=== PATIENT | female | born 2000 | race Caucasian/White ===

== ENCOUNTER 2020-03-02 13:16 | Emergency (ER) | payer OTHER, SELFPAY ==
[2020-03-02 14:26] LABS: Basophils % 0.6 % (0-1.3); Hematocrit 35.5 % (36.0-45.0); Lymphocytes % 26.5 % (15.3-44.8); MPV 8.7 fL (7.6-11.3); RBC Red Blood Cell Count 4.16 M/uL (3.86-4.86)
[2020-03-02 14:43] LABS: BUN Blood Urea Nitrogen 9 mg/dL (7-18); Bicarbonate 24 mmol/L (21-32); Glucose Level 93 mg/dL (74-106); HCG, Quantitative 772 mIU/mL (1-3); Potassium 3.9 mmol/L (3.5-5.1); Sodium Level 138 mmol/L (136-145)
[2020-03-02 14:53] LABS: Urine Blood 2+ (NEG); Urine Glucose NEGATIVE (NEG); Urine Protein NEGATIVE (NEG); Urine Specific Gravity 1.025 (1.005-1.030); Urine pH 5.5 (5.0-7.0)
--- NOTE | 2020-03-02 15:01 | ER ---
Nurse's Notes [facility] Name: Virginia Greer Age: 20 yrs Sex: Female : 2000 Arrival Date: 03/02/2020 Time: 13:19 Bed 23 Private MD: Diagnosis: Threatened Presentation: 03/02 13:23 Chief complaint: Spotty bright red vaginal bleeding x 1 week. Reports she is approx 9 hb weeks , LMP 12/26. Coronavirus screen: At this time, the client does not indicate any symptoms associated with coronavirus-19. Ebola Screen: No symptoms or risks identified at this time. Initial Sepsis Screen: Does the patient meet any 2 criteria? No. Patient's initial sepsis screen is negative. Does the patient have a suspected source of infection? No. Patient's initial sepsis screen is negative. Risk Assessment: Do you want to hurt yourself or someone else? Patient reports no desire to harm self or others. Onset of symptoms was February 26, 2020. 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 - Social history:: Smoking status: Patient denies any tobacco usage or history of. Screenin:50 Abuse screen: Denies threats or abuse. Nutritional screening: No deficits noted. aa5 Tuberculosis screening: No symptoms or risk factors identified. Fall Risk None identified. Assessment: 13:50 General: Appears comfortable, Behavior is calm, cooperative. Pain: Denies pain. Neuro: aa5 Level of Consciousness is awake, alert, obeys commands, Oriented to person, place, time, situation. Cardiovascular: Patient's skin is warm and dry. Respiratory: Airway is patent Respiratory effort is even, unlabored, Respiratory pattern is regular, symmetrical. GI: Abdomen is round non-distended, Bowel sounds present X 4 quads. Abd is soft and non tender X 4 quads. : Reports vaginal bleeding that is bright red, light flow. EENT: No signs and/or symptoms were reported regarding the EENT system. Derm: Skin is pink, warm \\T\\ dry. Musculoskeletal: Range of motion: intact in all extremities. 14:05 Reassessment: Pt refused IV, pt states "I don't mind the blood work but I don't like aa5 the IV". Provider was notified. . 14:17 Reassessment: Patient is alert, oriented x 3, equal unlabored respirations, skin aa5 warm/dry/pink. Pt to US via wheelchair . 15:10 Reassessment: Patient is alert, oriented x 3, equal unlabored respirations, skin aa5 warm/dry/pink. Vital Signs: 13:23 BP 125 / 79; Pulse 107; Resp 16; Temp 97.8; Pulse Ox 100% on R/A; Weight 89.81 kg; hb Height 5 ft. 7 in. (170.18 cm); Pain 0/10; 13:23 Body Mass Index 31.01 (89.81 kg, 170.18 cm) hb ED Course: 13:19 Patient arrived in ED. as 13:25 Triage completed. hb 13:26 Arm band placed on. hb 13:49 Allyson Chung, RN is Primary Nurse. aa5 13:49 Nick Rea PA is PHCP. [facility] 13:49 Mor Granados MD is Attending Physician. [facility] 13:50 Patient has correct armband on for positive identification. Bed in low position. Call aa5 light in reach. Side rails up X2. Adult w/ patient. 14:10 Initial lab(s) drawn, by me, sent to lab. aa5 14:50 Transvaginal OB In Process Unspecified. EDMS 15:10 No provider procedures requiring assistance completed. Patient did not have IV access aa5 during this emergency room visit. Administered Medications: No medications were administered Point of Care Testing: Urine : 14:00 hCG Reading: Positive; Control Reading: Positive; aa5 Outcome: 15:00 Discharge ordered by . [facility] 15:10 Discharged to home ambulatory, with significant other. aa5 15:10 Condition: stable 15:10 Discharge instructions given to patient, Instructed on discharge instructions, follow up and referral plans. Demonstrated understanding of instructions, follow-up care. 15:15 Patient left the ED. hb Signatures: Dispatcher [employer] Nick Lauren PA PA jmm Martinez, Amelia as Calderon, Audri, RN RN aa5 Norma Maynard, SONIYA RN hb
--- NOTE | 2020-03-02 15:01 | EDPHYS ---
Physician Documentation [facility] Name: Virginia Greer Age: 20 yrs Sex: Female : 2000 Arrival Date: 03/02/2020 Time: 13:19 Bed 23 Private MD: ED Physician Mor Granados HPI: 03/02 13:35 This 20 yrs old Female presents to ER via Ambulatory with complaints of jmm Vaginal Bleeding, + Preg <12wks. 13:35 The patient presents to the emergency department with vaginal bleeding. The estimated jmm gestational age is 8 weeks. Previous pregnancies: the patient has never been . Patient complains of bright red vaginal bleeding beginning today with some pelvic cramping. . 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 - Social history:: Smoking status: Patient denies any tobacco usage or history of. ROS: 13:35 Constitutional: Negative for fever, chills, and weight loss, Cardiovascular: Negative jmm for chest pain, palpitations, and edema, Respiratory: Negative for shortness of breath, cough, wheezing, and pleuritic chest pain. 13:35 : Positive for vaginal bleeding. 13:35 All other systems are negative. Exam: 13:35 Constitutional: This is a well developed, well nourished patient who is awake, alert, jmm and in no acute distress. Head/Face: atraumatic. Eyes: EOMI, no conjunctival erythema appreciated ENT: Moist Mucus Membranes Neck: Trachea midline, Supple Chest/axilla: Normal chest wall appearance and motion. Cardiovascular: Regular rate and rhythm. No edema appreciated Respiratory: Normal respirations, no respiratory distress appreciated Abdomen/GI: Non distended, soft Back: Normal ROM Skin: General appearance color normal MS/ Extremity: Moves all extremities, no obvious deformities appreciated, no edema noted to the lower extremities Neuro: Awake and alert, normal gait Psych: Behavior is normal, Mood is normal, Patient is cooperative and pleasant Vital Signs: 13:23 BP 125 / 79; Pulse 107; Resp 16; Temp 97.8; Pulse Ox 100% on R/A; Weight 89.81 kg; hb Height 5 ft. 7 in. (170.18 cm); Pain 0/10; 13:23 Body Mass Index 31.01 (89.81 kg, 170.18 cm) hb MDM: 14:03 Patient medically screened. [facility] 14:59 Data reviewed: vital signs, nurses notes. Counseling: I had a detailed discussion with sofia the patient and/or guardian regarding: the historical points, exam findings, and any diagnostic results supporting the discharge/admit diagnosis, lab results, radiology results, the need for outpatient follow up, to return to the emergency department if symptoms worsen or persist or if there are any questions or concerns that arise at home. ED course: Patient is alert and non toxic in appearance in the ED. Advised to follow up with obgyn for further evaluation. Patient understood and agrees with the plan of care. . 03/02 13:35 Order name: Quantitative Hcg; Complete Time: 14:48 kb 03/02 13:35 Order name: Abo/rh Typing; Complete Time: 14:59 kb 03/02 13:35 Order name: Basic Metabolic Panel; Complete Time: 14:48 kb 03/02 13:35 Order name: CBC with Diff; Complete Time: 14:33 kb 03/02 14:04 Order name: Urine Dipstick--Ancillary (enter results); Complete Time: 14:53 em1 03/02 14:04 Order name: Urine --Ancillary (enter results); Complete Time: 14:53 em1 03/02 13:35 Order name: Urine Test (obtain specimen); Complete Time: 14:01 kb 03/02 13:35 Order name: Labs collected and sent; Complete Time: 14:17 kb 03/02 13:35 Order name: NPO; Complete Time: 14:17 kb 03/02 13:35 Order name: Urine Dipstick-Ancillary (obtain specimen); Complete Time: 14:01 kb 03/02 14:50 Order name: Transvaginal OB; Complete Time: 15:11 EDMS Administered Medications: No medications were administered Point of Care Testing: Urine : 14:00 hCG Reading: Positive; Control Reading: Positive; aa5 Disposition: 03/03 14:41 Co-signature as Attending Physician, Mor Granados MD I agree with the assessment and kdr plan of care. Disposition: 03/02/20 15:00 Discharged to Home. Impression: Threatened . - Condition is Stable. - Discharge Instructions: Threatened Miscarriage. - Family Work Release, Medication Reconciliation Form, Thank You Letter, Antibiotic Education, Prescription Opioid Use, Work release form form. - Follow up: Private Physician; When: 2 - 3 days; Reason: Recheck today's complaints, Continuance of care, Re-evaluation by your physician. Signatures: Dispatcher [employer] EDNE Juhi Patel, FISHING LINE WINDING MACHINE OPERATOR-C FISHING LINE WINDING MACHINE OPERATOR-Ckb Mor Granados MD MD kdr Nick Rea PA PA Norma Erwin, RN RN hb Corrections: (The following items were deleted from the chart) 03/02 14:17 13:35 IV Saline Lock ordered. kb aa5 14:50 14:07 1st Trimest Single 1st Fetus+US.RAD.BRZ ordered. [facility] 15:15 15:00 03/02/2020 15:00 Discharged to Home. Impression: Threatened . Condition hb is Stable. Forms are Medication Reconciliation Form, Thank You Letter, Antibiotic Education, Prescription Opioid Use. Follow up: Private Physician; When: 2 - 3 days; Reason: Recheck today's complaints, Continuance of care, Re-evaluation by your physician. sofia
--- NOTE | 2020-03-02 15:08 | RAD REPORT ---
EXAM DESCRIPTION: US - Transvaginal OB - 03/02/2020 2:49 pm CLINICAL HISTORY: VAGINAL BLEEDING COMPARISON: No comparisons FINDINGS: The uterus measures 8.1 x 4.3 x 4.4 cm. Endometrium measures 8 mm in thickness with trace fluid present. No IUP identified. The maternal adnexa and ovaries are within normal limits. Normal Doppler blood flow was demonstrated to both ovaries. No pelvic ascites. IMPRESSION: There is no IUP identified. In the setting of an elevated HCG level, this would constitu te a of unknown location. Advise follow-up serial HCG levels and follow-up sonography in 7- 10 days.
[2020-03-02 15:35] VITALS: O2SAT 100
[2020-03-02 15:38] VITALS: BP 120/80; TEMP 97.7
--- OUTSIDE RECORDS SUMMARY | 2020-03-02 15:45 | XMS REPORT | Summary of Care ---
:2000 Author Organization [facility] - Health Address [address] [place] [address] Care Team Providers Name Role Phone Unavailable Primary Care Provider Unavailable Encounter Details Date Type Department Care Team Description 02/17/2020 Orders Only [facility] Doctor Unassigned, No [address] [facility] [place] [address] [address] [place] [address] Allergies Not on Filedocumented as of this encounter (statuses as of 02/17/2020) Medications Not on filedocumented as of this encounter (statuses as of 02/17/2020) Active Problems Not on filedocumented as of this encounter (statuses as of 02/17/2020) Social History Tobacco Use Types Packs/Day Years Used Date Never Assessed Sex Assigned at Date Recorded Not on file documented as of this encounter Last Filed Vital Signs Not on filedocumented in this encounter Plan of Treatment Date Type Specialty Care Team Description 02/17/2020 Office Visit OB Satellites Tara Perez FNP [address] [place] [address] [phone] [facility] Initial Visit OB Satellites Tara Perez FNP [address] [place], [place] [address] [phone] Health Maintenance Due Date Last Done Comments VARICELLA VACCINES (1 of 2 - 2-dose 02/13/2001 childhood series) MENINGOCOCCAL B VACCINES (1 of 2 - 02/13/2010 Risk Bexsero 2-dose series) HPV VACCINES (1 - 2-dose series) 02/13/2011 Depression Screening 2012 WELL CARE VISIT: 12-21 YEARS 2012 (yearly) CHLAMYDIA SCREENING 2016 DTaP,Tdap,and Td Vaccines (1 - 02/13/2019 Tdap) INFLUENZA VACCINE (#1) 2020 MENINGOCOCCAL VACCINE Aged Out No longer eligible based on patient's age to complete this topic PNEUMOCOCCAL 0-64 YEARS COMBINED Aged Out No longer eligible based on SERIES patient's age to complete this topic documented as of this encounter Procedures Procedure Name Priority Date/Time Associated Diagnosis Comme nts NOTICE OF PRIVACY Routine 02/17/2020 1:11 PM CDT PRACTICES documented in this encounter Results Not on filedocumented in this encounter
--- OUTSIDE RECORDS SUMMARY | 2020-03-02 15:45 | XMS REPORT | Continuity of Care Document ---
:2000 Author Organization [facility] t Address [address] [place] [address] Care Team Providers Name Role Phone Lillian Holden Attending Clinician Problems This patient has no known problems. Allergies, Adverse Reactions, Alerts This patient has no known allergies or adverse reactions. Medications This patient has no known medications. Procedures This patient has no known procedures. 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
--- OUTSIDE RECORDS SUMMARY | 2020-03-02 15:45 | XMS REPORT | Summary of Care ---
:2000 Author Organization [facility] Address [address] [place] [id number] Care Team Providers Name Role Phone Lillian Perez Primary Care Provider Reason for Visit Reason Comments Assessment Bleeding and needs to know w hat to do. Encounter Details Date Type Department Care Team Description 03/01/2020 [facility], Ass essment (Bleeding [place] DATA ANALYSIS INTERN and needs to know what [address] [place] [address] to do.) [place], [place] [phone] Allergies No Known Allergiesdocumented as of this encounter (statuses as of 03/01/2020) Medications No known medicationsdocumented as of this encounter (statuses as of 03/01/2020) Active Problems Problem Noted Date Susceptible to varicella (non-immune), currently pregn ant 02/18/2020 Overview: Address pp Influenza vaccine refused 02/17/2020 Supervision of high risk in first trimester 02/17/2020 Obesity affecting , antepartum 02/17/2020 Estimated Date of Delivery Comments Yes 10/02/2020 documented as of this encounter (statuses as of 03/01/2020) Social History Tobacco Use Types Packs/Day Years Used Date Never Smoker Smokeless Tobacco: Never Used Alcohol Use Drinks/Week oz/Week Comments Not Currently Estimated Date of Delivery Comments Yes 10/02/2020 Sex Assigned at Date Recorded Not on file COVID-19 Exposure Response Date Recorded In the last month, have you been in contact with No / Unsure 02/17/2020 2:00 PM CDT someone who was confirmed or suspected to have Coronavirus / COVID-19? documented as of this encounter Last Filed Vital Signs Not on filedocumented in this encounter Miscellaneous Notes Telephone Encounter - Mercy Diez RN - 03/01/2020 11:19 AM CDTPatient called states she started having vaginal bleeding since 02/29/2020. Patient passing blood clots last night and reports having menstrual like bleeding today. Patient denies any cramping, fever, and or soaking more than 1 pad an hour. Patient reports last intercourse 02/15/2020. Advised to go to ER for evaluation due to heavy bleeding. Strict ER warnings given. Patient verbalized understanding. MERCY DIEZ RN 03/01/2020 11:21 AM Telephone Encounter - Angelique Randall - 03/01/2020 11:11 AM CDTPatient called me because she has my info and wanted to talk to someone about her bleeding. She is aprenatal patient that was seen on 02/17/2020. She stated that at first notice, she was bleeding a little, but now, she is bleeding more. What should she do? documented in this encounter Plan of Treatment Date Type Specialty Care Team Description 03/16/2020 Routine Visit OB Satellites Tara Perez, DATA ANALYSIS INTERN [address] [place] [facility] [place], [place] [address] [phone] Health Maintenance Due Date Last Done Comments INFLUENZA VACCINE (#1) 2020 Postponed from 01/11/2020 (Refu sed) HPV VACCINES (1 - 2-dose 02/07/2021 Postpon ed from series) 02/13/2011 (Preg nant or ) CHLAMYDIA SCREENING 02/16/2021 02/17/2020, 02/17/2020 DTaP,Tdap,and Td Vaccines (1 02/16/2021 Pos tponed from - Tdap) 02/13/2019 ([place] Guidelines) Depression Screening 02/16/2021 02/17/2020 MENINGOCOCCAL B VACCINES (1 02/16/2021 Post poned from of 2 - Risk Bexsero 2-dose 02/13 ( or series) ) VARICELLA VACCINES (1 of 2 - 02/16/2021 Pos tponed from 2-dose childhood series) 001 ( or ) MENINGOCOCCAL VACCINE Aged Out No longer eligible based on patient's age to complete this to pic PNEUMOCOCCAL 0-64 YEARS Aged Out No longe r eligible based COMBINED SERIES on patient's age to complete this to pic WELL CARE VISIT: 12-21 YEARS Discontinued (yearly) documented as of this encounter Results Not on filedocumented in this encounter Insurance Payer Benefit Plan / Subscriber ID Effective Phone Address T ype Group Dates MEDICAID MEDICAID PENDING [id number] Pending [place] [address] documented as of this encounter
--- OUTSIDE RECORDS SUMMARY | 2020-03-02 15:45 | XMS REPORT | Summary of Care ---
:2000 Author Organization [facility] Address [address] [place] [address] Care Team Providers Name Role Phone Lillian Perez Primary Care Provider Reason for Visit Reason Comments New OB Visit Encounter Details Date Type Department Care Team Description 02/17/2020 Initial [facility] RMP- Tara Perez pervision of high risk in first trimester (Primary Dx); Visit CLARE Zapata Obesity affecting , antepartum; [address] Exposure to viral disease; Street [address] [place] [id number] [phone] Allergies No Known Allergiesdocumented as of this encounter (statuses as of 02/17/2020) Medications No known medicationsdocumented as of this encounter (statuses as of 02/17/2020) Active Problems Problem Noted Date Influenza vaccine refused 02/17/2020 Supervision of high [...] of this encounter Last Filed Vital Signs Vital Sign Reading Time Taken Comments Blood Pressure 131/77 02/17/2020 2:00 PM CDT Pulse 98 02/17/2020 2:00 PM CDT Temperature 36.4 C (97.5 F) 02/17/2020 2:00 PM CDT Respiratory Rate 16 02/17/2020 2:00 PM CDT Oxygen Saturation - - Inhaled Oxygen Concentration - - Weight 90.5 kg (199 lb 9 oz) 02/17/2020 2:00 PM CDT Height 170.2 cm (5' 7") 02/17/2020 2:00 PM CDT Body Mass Index 31.26 02/17/2020 2:00 PM CDT documented in this encounter Progress Notes Tara Perez, INFANTRY OPERATIONS SPECIALIST - 02/17/2020 1:45 PM CDT Chief complaint: Chief Complaint Patient presents with New OB Visit CC: Initial Visit Virginia Greer is a 20 year old, , /White female. Patient's last menstrual periodwas 12/27/2019 (approximate). She is 7w3d with a suspected intrauterine . Her Estimated Date of Delivery: 10/02/20. She is being seen today for her first obstetrical visit. She has no complaints today. Patient denies recent foreign travel. Denies current physical, emotional or sexual abuse. OB History T0 L0 SAB0 TAB0 Ectopic0 Multiple0 Live Births0 Name of Baby 1: Not recorded Date: Not recorded GA: Not recorded Delivery: Not recorded Apgar1: Not recorded Apgar5: Not recorded Living: Not recorded Histories OB History Para Term AB Living 1 SAB TAB Ectopic Multiple Live Births # Outcome Date GA Lbr Lul/2nd Weight Sex Delivery Anes PTL Lv 1 Current History reviewed. No pertinent past medical history. Family History Problem Relation Age of Onset Diabetes Mother Diabetes Maternal Grandfather Family Status Relation Name Status Mo Alive MGFa Alive History reviewed. No pertinent surgical history. Social History Socioeconomic History Marital status: Single Spouse name: Not on file Number of children: Not on file Years of education: Not on file Highest education level: Not on file Occupational History Not on file Social Needs Financial resource strain: Not on file Food insecurity Worry: Not on file Inability: Not on file Transportation needs Medical: Not on file Non-medical: Not on file Tobacco Use Smoking status: Never Smoker Smokeless tobacco: Never Used Substance and Sexual Activity Alcohol use: Not Currently Drug use: Not Currently Sexual activity: Not on file Lifestyle Physical activity Days per week: Not on file Minutes per session: Not on file Stress: Not on file Relationships Social connections Talks on phone: Not on file Gets together: Not on file Attends adventism service: Not on file Active member of club or organization: Not on file Attends meetings of clubs or organizations: Not on file Relationship status: Not on file Intimate partner violence Fear of current or ex partner: Not on file Emotionally abused: Not on file Physically abused: Not on file Forced sexual activity: Not on file Other Topics Concern Not on file Social History Narrative Patient lives with fiance. Taoist preference Holiness. Patient has 2 dogs and 1 kitten, aware of litter box precautions. Social History Substance and Sexual Activity Sexual Activity Not on file Genetic Screen Autism / Mental Retardation: No Hawk Disease: No Congenital Heart Defect: No Cystic Fibrosis: No Down Syndrome: No Familial Dysautonomia: No Hemophilia or other Blood Disorders: No [place] Chorea: No Maternal Metabolic Disorder--specify (eg. Type 1 Diabetes, PKU): No Muscular Dystrophy: No Neural Tube Defect: No Recurrent Loss or a Stillbirth: No Sickle Cell Disease or Trait: No Leonard Sachs: No Teratological Substances (specify type & strength/dose) since LMP: No Thalassemia: No Other Inherited Genetic or Chromosomal Disorder (specify): No No Significant History of Genetic Disorders: No Significant History of Genetic Disorders Labs Labs are pending. Radiology Radiology pending. Allergies Virginia has No Known Allergies. Medications [place] currently has no medications in their medication list. Review of Systems Constitutional: Negative. Negative for appetite change, fatigue and fever. HENT: Negative. Eyes: Negative. Negative for visual disturbance. Respiratory: Negative. Breasts: Negative. Cardiovascular: Negative. Negative for palpitations and leg swelling. Gastrointestinal: Negative. Negative for abdominal pain, constipation, diarrhea, nausea and vomiting. Genitourinary: Negative. Negative for dysuria, vaginal bleeding, vaginal discharge and pelvic pain. Musculoskeletal: Negative. Skin: Negative. Negative for rash. Neurological: Negative. Negative for dizziness, light-headedness and headaches. Psychiatric/Behavioral: Negative. Endocrine: Endocrine negative BP 131/77 (BP Location: Right arm, Patient Position: Sitting, BP CUFF SIZE: Adult Medium) | Pulse 98 | Temp 36.4 C (97.5 F) (Oral) | Resp 16 | Ht 5' 7" (1.702 m) | Wt 199 lb 9 oz (90.5 kg) | LMP 12/27/2019 (Approximate) | BMI 31.26 kg/m Pregravid BMI: 27.40 Physical Exam Vitals reviewed. Constitutional: She is oriented to person, place, and time. She appears well- developed and well-nourished. Her body habitus is normal. See flowsheet Neck: No thyroid nodules and no thyromegaly palpated. Cardiovascular: Regular rate and rhythm. No murmur auscultated. No peripheral edema present. Pulmonary/Chest: Breath sounds clear to auscultation. Normal inspiratory effort. Abdominal: Abdomen is soft. No mass palpated. No tenderness present. There is no hepatosplenomegaly. Neuro/Psychiatric: She has a normal mood and affect. She is oriented to person, place, and time. Skin: Skin normal. No lesion and no rash present. Tattoos present Genitourinary Comments: Chaperoned by: Shelton Geller MA Breast: Right breast exhibits no mass, no nipple discharge and no tenderness. Left breast exhibits no mass, no nipple discharge and no tenderness. Normal left breast and normal right breast External genitalia: Normal external genitalia appropriate for age. No labial lesion. Bladder: No tenderness. Normal bladder Vagina:Normal vagina. No lesion inspected. No abnormal vaginal discharge found. No lesions in thevagina. Cervix: Normal cervix. No lesion. No tenderness and no discharge present. Uterus: Uterus is normal size, normal position and non-tender. Normal uterus Adnexa: Right adnexa without tenderness. Left adnexa without tenderness. Normal left adnexa and normal right adnexa PHYSICAL: General Exam: HEENT: Normal Thyroid: Normal Lymph Node: Normal Neurological: Normal Heart: Normal Lungs: Normal Breasts: Normal Abdomen: Normal Skin: Normal Extremities: Normal Pelvic Exam: Vulva: Normal Vagina: Normal Cervix: Normal Membrane status: Intact Uterus: 7 Weeks Adnexa: Normal Rectum: Normal Spines: Average Subpubic Arch: Normal Assessment/Plan 1. Supervision of high risk in first trimester 7w3d New OB packet reviewed TWG discussed Discussed recommendation for social distancing and PPE use Initiate Vitamins Increase Fluid Intake. Minimum of 8 water bottles daily. Desires genetic screening, plan NT with dating US and FTS, followed by [facility] - POCT URINALYSIS W SPECIFIC GRAVITY; Standing - POCT TEST - POCT URINALYSIS W SPECIFIC GRAVITY - GLUCOSE 1 HOUR POST PRANDIAL; Future - CBC WITH DIFF - GC & CHLAMYDIA AMPLIFIED ASSAY - HEPATITIS B SURFACE ANTIGEN - HIV 1/2 AG-AB WITH REFLEX - WORKUP, BLOOD BANK - RUBELLA SCREEN (MERLY) IGG - GALV ONLY - SYPHILIS IGG/IGM - URINE CULTURE - VZV ANTIBODY SCREEN - GLUCOSE 1 HOUR POST PRANDIAL 2. Obesity affecting , antepartum The patient is asked to make an attempt to improve diet and exercise patterns to aid in medical management of this problem. 3. Exposure to viral disease Per guidelines - SARS-COV-2 IGG 4. Influenza vaccine refused Counseling given Return to clinic in 4 weeks. Discussed treatment options. Reviewed patient instructions and provided printed copy. at 7w3d This visit did not involve counseling and coordination that comprised more than 50% of the visit time. Tiffanie Monroy LVN - 02/17/2020 1:45 PM CDTPatient is 20 year old female here for current . Patient is . 1) Previous delivery methods N/a 2) Patient is not experiencing cramping 3) Patient is not experiencing bleeding. 4) LMP 12/27/2019 5) Last Pap was:n/a Results:n/a 6) PPD candidate?no 7) Patient denies history of physical, emotional, or sexual abuse. Patient states she currently feels safe at home. 8) C/O none 9) Would like flu vaccine? refused NOB packet given and reviewed with patient. documented in this encounter Plan of Treatment Date Type Specialty Care Team Description 03/16/2020 Routine Visit OB Satellites Tara Perez FNP [address] [place], [place] [address] [phone] Name Type Priority Associated Diagnoses Order S chedule POCT URINALYSIS W LAB Routine Supervision of high ris k 20 Occurrences starting SPECIFIC GRAVITY in first 02/16 until trimester 12/13/2020, 1 c ompleted GLUCOSE 1 HOUR POST LAB Routine Supervision of high r isk Expected: 02/17/2020, PRANDIAL in first Expires: 02/16/2021 trimester CBC WITH DIFF LAB Routine Supervision of high risk Or dered: 02/17/2020 in first trimester GC & CHLAMYDIA LAB Routine Supervision of high risk O rdered: 02/17/2020 AMPLIFIED ASSAY in first trimester HEPATITIS B SURFACE LAB Routine Supervision of high r isk Ordered: 02/17/2020 ANTIGEN in first trimester HIV 1/2 AG-AB WITH LAB Routine Supervision of high ri sk Ordered: 02/17/2020 REFLEX in first trimester WORKUP, BLOOD LAB Routine Supervision of hig h risk Ordered: 02/17/2020 BANK in first trimester RUBELLA SCREEN (MERLY) LAB Routine Supervision of hig h risk Ordered: 02/17/2020 IGG in first trimester GALV ONLY - SYPHILIS LAB Routine Supervision of high risk Ordered: 02/17/2020 IGG/IGM in first trimester URINE CULTURE LAB Routine Supervision of high risk Or dered: 02/17/2020 in first trimester VZV ANTIBODY SCREEN LAB Routine Supervision of high r isk Ordered: 02/17/2020 in first trimester SARS-COV-2 IGG LAB Routine Exposure to viral Ordered: 02/17/2020 disease Health Maintenance Due Date Last Done Comments INFLUENZA VACCINE (#1) 2020 Postponed from 01/11/2020 (Refused) HPV VACCINES (1 - 2-dose series) 02/07/2021 Postponed from 02/13/2011 ( or Sandy astfeeding) CHLAMYDIA SCREENING 02/16/2021 02/17/2020 DTaP,Tdap,and Td Vaccines (1 - 02/16/2021 P ostponed from 02/13/2019 Tdap) (Alternative Darshan delines) Depression Screening 02/16/2021 02/17/2020 MENINGOCOCCAL B VACCINES (1 of 2 02/16/2021 Postponed from 02/13/2010 - Risk Bexsero 2-dose series) (P regnant or ) VARICELLA VACCINES (1 of 2 - 02/16/2021 Pos tponed from 02/13/2001 2-dose childhood series) (Pregna nt or ) MENINGOCOCCAL VACCINE Aged Out No longer eligible based on patient's age to complete this topic PNEUMOCOCCAL 0-64 YEARS COMBINED Aged Out No longer eligible based on SERIES patient's age to complete this topic WELL CARE VISIT: 12-21 YEARS Discontinued (yearly) documented as of this encounter Procedures Procedure Name Priority Date/Time Associated Diagnosis Comme nts POCT TEST Routine 02/17/2020 2:03 Supervision of hi gh Results for this PM CDT risk in procedure are in first trimester the results section. POCT URINALYSIS Routine 02/17/2020 2:03 Supervision of high R esults for this PM CDT risk in procedure are in first trimester the results section. documented in this encounter Results POCT TEST (02/17/2020 2:03 PM CDT) Pathologist Sig nature POCT PREG Positive On board controls acceptable Yes with C Line POCT PREG LOT # POCT PREG TEST DATE Specimen Urine - URINE, CLEAN CATCH POCT URINALYSIS W SPECIFIC GRAVITY (02/17/2020 2:03 PM CDT) Pathologist Sig nature POCT U SP GRAV . 1.005 - 1.025 mg/dl POCT PH U 5 5 - 8 mg/dl POCT U LEUK EST negative Negative - Negative POCT U NIT negative Negative - Negative POCT U PROT trace Negative - Negative POCT U GLU negative Negative - Negative POCT U KETONE negative Negative - Negative POCT U UROBILI . 0.2 - 1 mg/dl POCT U BILI . Negative - Negative POCT U BLD negative Negative - Negative POCT U COLOR POCT U APPEAR Specimen Urine - URINE, CLEAN CATCH documented in this encounter Visit Diagnoses Diagnosis Supervision of high risk in fi rst trimester - Primary Unspecified high-risk Obesity affecting , antepartum Exposure to viral disease Contact with or exposure to other viral diseases Influenza vaccine refused Vaccination not carried out because of p atient refusal documented in this encounter Insurance Payer Benefit Plan / Subscriber ID Effective Phone Address T ype Group Dates MEDICAID MEDICAID PENDING 2020-[address] [place] [phone] documented as of this encounter
--- OUTSIDE RECORDS SUMMARY | 2020-03-02 15:45 | XMS REPORT | Summary of Care ---
:2000 Author Organization [facility] Address [address] [place] [address] Care Team Providers Name Role Phone Lillian Perez Primary Care Provider Reason for Visit Reason Comments New OB Visit Encounter Details Date Type Department Care Team Description 02/17/2020 Initial [facility] RMP- Tara Perez pervision of high risk in first trimester (Primary Dx); Visit CLARE Zapata Obesity affecting , antepartum; [address] Exposure to viral disease; [address] [place] [id number] [phone] Allergies No Known Allergiesdocumented as of this [...] in this encounter Progress Notes Tara Perez, STONE DRILLER - 02/17/2020 1:45 PM CDT Chief complaint: [...] file Gets together: Not on file Attends judaism service: Not on file Active member of [...] Social History Narrative Patient lives with fiance. Uatsdin preference Scientology. Patient has 2 dogs and 1 kitten, aware of litter box precautions. Social History Substance and Sexual Activity Sexual Activity Not on file Genetic Screen Autism / Mental Retardation: No Hawk Disease: No Congenital Heart Defect: No Cystic Fibrosis: No Down Syndrome: No Familial Dysautonomia: No Hemophilia or other Blood Disorders: No [place] Chorea: No Maternal Metabolic Disorder--specify (eg. Type [...] Perez FNP [address] [place], [place] [address] [phone] Name Type Priority Associated Diagnoses Date/Ti me GLUCOSE 1 HOUR POST LAB Routine Supervision of high r isk 02/17/2020 3:07 PM CDT PRANDIAL in first trimester CBC WITH DIFF LAB Routine Supervision of high risk 3:07 PM CDT in first trimester GC & CHLAMYDIA LAB Routine Supervision of high risk 1 3:48 PM CDT AMPLIFIED ASSAY in first trimester HEPATITIS B SURFACE LAB Routine Supervision of high r isk 02/17/2020 3:07 PM CDT ANTIGEN in first trimester HIV 1/2 AG-AB WITH LAB Routine Supervision of high ri sk 02/17/2020 3:07 PM CDT REFLEX in first trimester RUBELLA SCREEN (MERLY) LAB Routine Supervision of hig h risk 02/17/2020 3:07 PM CDT IGG in first trimester GALV ONLY - SYPHILIS LAB Routine Supervision of high risk 02/17/2020 3:07 PM CDT IGG/IGM in first trimester URINE CULTURE LAB Routine Supervision of high risk 3:48 PM CDT in first trimester VZV ANTIBODY SCREEN LAB Routine Supervision of high r isk 02/17/2020 3:07 PM CDT in first trimester SARS-COV-2 IGG LAB Routine Exposure to viral disease 02/17/2020 3:07 PM CDT Name Type Priority Associated Diagnoses Order S chedule POCT URINALYSIS W LAB Routine Supervision of high ris k 20 Occurrences starting SPECIFIC GRAVITY in first 02/16 until trimester 12/13/2020, 1 c ompleted GLUCOSE 1 HOUR POST LAB Routine Supervision of high r isk Expected: 02/17/2020, PRANDIAL in first Expires: 02/16/2021 trimester WORKUP, BLOOD LAB Routine Supervision of hig h risk Ordered: 02/17/2020 BANK in first trimester Health Maintenance Due Date Last Done Comments [...] T ype Group Dates MEDICAID MEDICAID PENDING 2020-[address] [place] [phone] documented as of this encounter
== END 2020-03-02 15:15 | disposition home or self-care (01) ==
LOC: ER 13:16
DX: O20.0 Threatened abortion (principal); Z3A.08 8 weeks gestation of pregnancy
CPT/HCPCS: 36415; 76817; 80048; 81003; 81025; 84702; 85025; 86900; 86901; 99283

== ENCOUNTER 2020-05-01 10:45 | Emergency (ER) | payer OTHER ==
--- OUTSIDE RECORDS SUMMARY | 2020-05-01 11:18 | XMS REPORT | Continuity of Care Document ---
:2000 Author Organization [facility] t Address [address] [place] [address] Care Team Providers Name Role Phone Wanda Clarke Attending Clinician Doctor Unassigned, Name Attending Clinician Unavailable Chris SPARKS, N Attending Clinician Lab Attending Clinician Unavailable Problems This patient has no known problems. Allergies, Adverse Reactions, Alerts This patient has no known allergies or adverse reactions. Medications This patient has no known medications. Procedures This patient has no known procedures. Encounters Start End Encounter Admission Attending Care Care Encounter Source Date/Time Date/Time Type Type Clinicians Facility Department ID 2020-04-16 2020-04-16 Emergency HEIDI [place] [id number] 17:02:00 18:11:00 Carl Muñoz Diana [id number] [place] [id number] [place] [id number] 2020-03-20 2020-03-20 Orders Doctor UMESH [id number] 00:00:00 00:00:00 Only Unassigned, JEAN [id number] [place] [facility] [id number] 2020-03-16 2020-03-16 Routine HEIDI Perez [id number] 12:47:30 13:16:22 Tara Snyder AUDIO/VISUAL MANAGER [id number] Visit [facility] [id number] MATERNAL [id number] & CHILD [address] [place] [address] 2020-03-07 2020-03-07 [facility] [id number] 00:00:00 00:00:00 Tara N AUDIO/VISUAL MANAGER [id number] REGIONAL [id number] MATERNAL [id number] & CHILD [address] [facility] 2020-03-06 2020-03-06 Counter Server Lab, [facility] [id number] 08:26:30 08:34:25 [facility] AUDIO/VISUAL MANAGER [id number] REGIONAL [id number] MATERNAL [id number] & CHILD [address] [facility] 2020-03-03 2020-03-03 Routine [facility] [id number] 07:49:02 08:31:39 Tara N AUDIO/VISUAL MANAGER [id number] Visit REGIONAL [id number] MATERNAL [id number] & CHILD 107 [facility] 2020-03-01 2020-03-01 Telephone [facility] [id number] 00:00:00 00:00:00 Tara N AUDIO/VISUAL MANAGER [id number] REGIONAL [id number] MATERNAL [id number] & CHILD 107 [facility] 2020-02-17 2020-02-17 Initial [facility] [id number] 13:50:21 14:39:26 Tara N AUDIO/VISUAL MANAGER [id number] Visit REGIONAL [id number] MATERNAL [id number] & CHILD 107 [facility] Results This patient has no known results.
--- OUTSIDE RECORDS SUMMARY | 2020-05-01 11:18 | XMS REPORT | Summary of Care ---
:2000 Author Organization [facility] Address [address] [place] [address] Care Team Providers Name Role Phone Lillian Perez Primary Care Provider Reason for Visit Reason Comments New OB Visit Encounter Details Date Type Department Care Team Description 02/17/2020 Initial [facility] RMP- Tara Perez pervision of high risk in first trimester (Primary Dx); Visit CLARE Zapata Obesity affecting , antepartum; [address] Exposure to viral disease; [address] [place] [address] [phone] Allergies No Known Allergiesdocumented as of this [...] in this encounter Progress Notes Tara Perez, LUGGAGE REPAIRER - 02/17/2020 1:45 PM CDT Chief complaint: [...] file Gets together: Not on file Attends mandaeism service: Not on file Active member of [...] Social History Narrative Patient lives with fiance. Yazidi preference Congregation. Patient has 2 dogs and 1 kitten, aware of litter box precautions. Social History Substance and Sexual Activity Sexual Activity Not on file Genetic Screen Autism / Mental Retardation: No [place] Disease: No Congenital Heart Defect: No Cystic Fibrosis: No Down Syndrome: No Familial Dysautonomia: No Hemophilia or other Blood Disorders: No [place] Chorea: No Maternal Metabolic Disorder--specify (eg. Type [...] Perez FNP [address] [place], [place] [address] [phone] Name Type Priority Associated Diagnoses Date/Ti me [...] T ype Group Dates MEDICAID MEDICAID PENDING 2020-[address] [place] [phone] 1 documented as of this encounter
--- OUTSIDE RECORDS SUMMARY | 2020-05-01 11:18 | XMS REPORT | Summary of Care ---
:2000 Author Organization [facility] Address [address] [place] [address] Care Team Providers Name Role Phone Lillian Perez Primary Care Provider Reason for Visit Reason Comments Care Encounter Details Date Type Department Care Team Description 03/03/2020 Routine [facility]- Tara Perez reatened , antepartum (Primary Dx); Visit CLARE Zapata Supervision of high risk in fi rst trimester; [address] Obesity affecting , antepartum; Street [address] Susceptible to varicella (non-immune), c urrently ; [place], [place] Elevated BP wit hout diagnosis of hypertension [id number] [phone] Allergies No Known Allergiesdocumented as of this encounter (statuses as of 03/03/2020) Medications No known medicationsdocumented as of this encounter (statuses as of 03/03/2020) Active Problems Problem Noted Date Threatened , antepartum 03/03/2020 Elevated BP without diagnosis of hypertension 03/03/20 20 Susceptible to varicella (non-immune), currently pregn ant 02/18/2020 Overview: Address pp Influenza vaccine refused 02/17/2020 Supervision of high risk in first trimester 02/17/2020 Obesity affecting , antepartum 02/17/2020 Estimated Date of Delivery Comments Yes 10/02/2020 documented as of this encounter (statuses as of 03/03/2020) Social History Tobacco Use Types Packs/Day Years Used Date Never Smoker Smokeless Tobacco: Never Used Alcohol Use Drinks/Week oz/Week Comments Not Currently Estimated Date of Delivery Comments Yes 10/02/2020 Sex Assigned at Date Recorded Not on file COVID-19 Exposure Response Date Recorded In the last month, have you been in contact with No / Unsure 03/03/2020 7:56 AM CDT someone who was confirmed or suspected to have Coronavirus / COVID-19? documented as of this encounter Last Filed Vital Signs Vital Sign Reading Time Taken Comments Blood Pressure 130/80 03/03/2020 7:58 AM CDT Pulse 98 03/03/2020 7:57 AM CDT Temperature 36.3 C (97.4 F) 03/03/2020 7:57 AM CDT Respiratory Rate 16 03/03/2020 7:57 AM CDT Oxygen Saturation - - Inhaled Oxygen Concentration - - Weight 90.1 kg (198 lb 9.6 oz) 03/03/2020 7:58 AM CDT Height 170.2 cm (5' 7") 03/03/2020 7:58 AM CDT Body Mass Index 31.11 03/03/2020 7:58 AM CDT documented in this encounter Progress Notes Tara Perez, BARREL LEVELER - 03/03/2020 8:00 AM CDT Chief complaint: Chief Complaint Patient presents with Care HPI [place] Greer is a 20 year old female is a @ 9w4d here for visit/ER follow up. Patient's last menstrual period was 12/27/2019 (approximate). Estimated Date of Delivery: 10/02/20 Pt reports started having light vaginal bleeding on 02/27. On 02/28 bleeding became heavier and passing clots. She went to the ER in [place] yesterday. Reports she had an ultrasound and lab work. States the ultrasound "didn't show anything" but that her Hcg was "high like she was still ".Pt reports bleeding today is light with wiping only. She denies pain at this time. ER records requested. She denies any foreign travel. She also denies any physical, sexual or emotional abuse. Histories OB History Para Term AB Living 1 SAB TAB Ectopic Multiple Live Births # Outcome Date GA Lbr Lul/2nd Weight Sex Delivery Anes PTL Lv 1 Current No past medical history on file. Family History Problem Relation Age of Onset Diabetes Mother Diabetes Maternal Grandfather Family Status Relation Name Status Mo Alive MGFa Alive No past surgical history on file. Social History Socioeconomic History Marital status: Single [...] file Gets together: Not on file Attends alevism service: Not on file Active member of [...] file Social History Narrative [facility]. Quaker preference Yazdanism. Patient has 2 dogs and 1 kitten, aware of litter box precautions. Social History Substance and Sexual Activity Sexual Activity Not on file Labs Labs are pending. Radiology Radiology pending. Allergies [place] has No Known Allergies. Medications [place] currently has no medications in their medication list. Review of Systems Constitutional: Negative for appetite change, fatigue and fever. Eyes: Negative for visual disturbance. Respiratory: Negative. Cardiovascular: Negative for palpitations and leg swelling. Gastrointestinal: Negative for abdominal pain, constipation, diarrhea, nausea and vomiting. Genitourinary: Positive for vaginal bleeding. Negative for dysuria, vaginal discharge and pelvic pain. Musculoskeletal: Negative. Skin: Negative for rash. Neurological: Negative for dizziness, light-headedness and headaches. Psychiatric/Behavioral: Negative. BP 130/80 (BP Location: Left arm, Patient Position: Sitting, BP CUFF SIZE: Adult Medium) | Pulse 98 | Temp 36.3 C (97.4 F) (Oral) | Resp 16 | Ht 5' 7" (1.702 m) | Wt 198 lb 9.6 oz (90.1 kg) |LMP 12/27/2019 (Approximate) | BMI 31.11 kg/m Pregravid BMI: 27.40 Physical Exam Vitals reviewed. Constitutional: She is oriented to person, place, and time. She appears well- developed and well-nourished. See flowsheet Cardiovascular: No peripheral edema present. Pulmonary/Chest: Normal inspiratory effort. Neuro/Psychiatric: She has a normal mood and affect. She is oriented to person, place, and time. Assessment/Plan 1. Threatened , antepartum Will do serial beta levels today and Friday Records requested Can order US with active insurance ER warnings reviewed - TOTAL BETA HCG ASSAY - TOTAL BETA HCG ASSAY; Future - TOTAL BETA HCG ASSAY 2. Supervision of high risk in first trimester 9w4d 3. Obesity affecting , antepartum The patient is asked to make an attempt to improve diet and exercise patterns to aid in medical management of this problem. 4. Susceptible to varicella (non-immune), currently Offer vaccine . 5. Elevated BP without diagnosis of hypertension Continue to monitor BP Readings from Last 3 Encounters: 03/03/20 130/80 02/17/20 131/77 Return to clinic in 3 days. Reviewed patient instructions and provided printed copy. at 9w4d This visit did not involve counseling and coordination that comprised more than 50% of the visit time. documented in this encounter Plan of Treatment Date Type Specialty Care Team Description 03/06/2020 Primary Operator Visit [facility]ell[facility] Lab, [facility] 03/16/2020 Routine Visit OB Satellites Tara Perez FNP [address] [place], [place] [address] [phone] Name Type Priority Associated Diagnoses Date/Ti me TOTAL BETA HCG ASSAY LAB Routine Threatened , 03/03/2020 8:25 AM CDT antepartum Name Type Priority Associated Diagnoses Order S chedule TOTAL BETA HCG ASSAY LAB Routine Threatened , Ordered: 03/03/2020 antepartum TOTAL BETA HCG ASSAY LAB Routine Threatened , Expected: 03/06/2020, antepartum Expires: 2020 Health Maintenance Due Date Last Done Comments [...] on patient's age to complete [facility] to [facility] WELL CARE VISIT: 12-21 YEARS Discontinued (yearly) documented as of this encounter Results Not on filedocumented in this encounter Visit Diagnoses Diagnosis Threatened , antepartum - Primar y Supervision of high risk in fi rst trimester Unspecified high-risk Obesity affecting , antepartum Susceptible to varicella (non-immune), c urrently Supervision of other high-risk Elevated BP without diagnosis of hyperte nsion documented in this encounter Insurance Payer Benefit Plan / Subscriber ID Effective Phone Address T ype Group Dates MEDICAID MEDICAID PENDING 2020-[address] [place] [phone] documented as of this encounter
--- OUTSIDE RECORDS SUMMARY | 2020-05-01 11:18 | XMS REPORT | Summary of Care ---
:2000 Author Organization [facility] Address [address] [place] [address] Care Team Providers Name Role Phone Lillian Perez Primary Care Provider Reason for Visit Reason Comments LAB Encounter Details Date Type Department Care Team Description 03/06/2020 Binder And Wrapper Packer Visit [facility]- Carolina Perez, GAUGER CHIEF DELIVERY [address] [place] [address] Inappropriate change [facility], [facility] in quantitative hCG [address] [place] [address] Allergies No Known Allergiesdocumented as of this encounter (statuses as of 03/06/2020) Medications No known medicationsdocumented as of this encounter (statuses as of 03/06/2020) Active Problems Problem Noted Date Threatened , antepartum 03/03/2020 Elevated BP without diagnosis of hypertension 03/03/20 20 Susceptible to varicella (non-immune), currently pregn ant 02/18/2020 Overview: Address pp Influenza vaccine refused 02/17/2020 Supervision of high risk in first trimester 02/17/2020 Obesity affecting , antepartum 02/17/2020 Estimated Date of Delivery Comments Yes 10/02/2020 documented as of this encounter (statuses as of 03/06/2020) Social History Tobacco Use Types Packs/Day Years Used Date Never Smoker Smokeless Tobacco: Never Used Alcohol Use Drinks/Week oz/Week Comments Not Currently Estimated Date of Delivery Comments Yes 10/02/2020 Sex Assigned at Date Recorded Not on file COVID-19 Exposure Response Date Recorded In the last month, have you been in contact with No / Unsure 03/06/2020 8:34 AM CDT someone who was confirmed or suspected to have Coronavirus / COVID-19? documented as of this encounter Last Filed Vital Signs Not on filedocumented in this encounter Plan of Treatment Date Type Specialty Care Team Description 03/16/2020 Routine Visit OB Satellites Tara Perez, GAUGER CHIEF DELIVERY [address] [place], [place] [address] [phone] Health Maintenance Due Date Last Done Comments [...] on patient's age to complete this to [facility] WELL CARE VISIT: 12-21 YEARS Discontinued (yearly) documented as of this encounter Results Not on filedocumented in this encounter Visit Diagnoses Diagnosis Inappropriate change in quantitative hCG in early Inappropriate change in quantitative hum an chorionic gonadotropin (hCG) in early documented in this encounter Insurance Payer Benefit Plan / Subscriber ID Effective Phone Address T ype Group Dates MEDICAID MEDICAID PENDING 2020-[address] [place] [phone] 1 documented as of this encounter
--- OUTSIDE RECORDS SUMMARY | 2020-05-01 11:18 | XMS REPORT | Summary of Care ---
:2000 Author Organization [facility] - [facility] Address [address] [place] [address] Care Team Providers Name Role Phone Unavailable Primary Care Provider Unavailable Encounter Details Date Type Department Care Team Description 02/17/2020 Orders Only [facility] Doctor Unassigned, No [address] [facility] [place] [address] [address] [place] [address] Allergies Not on Filedocumented as of this [...] Satellites Tara Perez FNP [address] [place] [address] [phone] [facility] Initial Visit [facility] Satellites Tara Perez FNP [address] [place], [place] [address] [phone] Health Maintenance Due Date Last Done Comments [...]
--- OUTSIDE RECORDS SUMMARY | 2020-05-01 11:18 | XMS REPORT | Summary of Care ---
:2000 Author Organization [facility] Address [address] [place] [address] Care Team Providers Name Role Phone Lillian Perez Primary Care Provider Reason for Visit Reason Comments Lab Results Encounter Details Date Type Department Care Team Description 03/07/2020 Telephone [facility]- A Tara Miller FNP Lab Results [address] [place] [address] [facility] A [phone] [place], [place] [address] [phone] Allergies No Known Allergiesdocumented as of this encounter (statuses as of 03/08/2020) Medications No known medicationsdocumented as of this encounter (statuses as of 03/08/2020) Active Problems Problem Noted Date Threatened , antepartum 03/03/2020 Elevated BP without diagnosis of hypertension 03/03/20 20 Susceptible to varicella (non-immune), currently pregn ant 02/18/2020 Overview: Address pp Influenza vaccine refused 02/17/2020 Supervision of high risk in first trimester 02/17/2020 Obesity affecting , antepartum 02/17/2020 Estimated Date of Delivery Comments Yes 10/02/2020 documented as of this encounter (statuses as of 03/08/2020) Social History Tobacco Use Types Packs/Day Years [...] Telephone Encounter - Mercy Diez RN - 03/08/2020 1:38 PM CDT3rd attempt to call patient. No answer. Left vm. Letter mailed. MERCY DIEZ RN 03/08/2020 1:38 PM Telephone Encounter - Chong Mc RN - 03/08/2020 7:55 AM CDTAttempt #2. Called, no answer. VM not set, unable to leave message. CHONG MC RN 03/08/2020 7:55 AM Telephone Encounter - Mercy Diez RN - 03/07/2020 8:38 AM CDTCalled patient, no answer. No vm box set up. MERCY DIEZ RN 03/07/2020 8:38 AM Telephone Encounter - Tara Perez FNP - 03/07/2020 8:06 AM CDTPlease let patient know her beta is trending down, which is consistent with a miscarriage. Please have her keep her appointment with me next week and we will do a UPT and can discuss control if that is something she wants. Will need to change that appointment type to . documented in this encounter Plan of Treatment Date Type Specialty Care Team Description 03/16/2020 Routine Visit OB Satellites Tara Perez FNP [address] [place], [place] [address] [phone] Health Maintenance Due Date Last Done Comments [...] T ype Group Dates MEDICAID MEDICAID PENDING 2020-[address] Pending PENDING [place] [address] documented as of this encounter
--- OUTSIDE RECORDS SUMMARY | 2020-05-01 11:18 | XMS REPORT | Summary of Care ---
:2000 Author Organization [facility] Address [address] [place] [address] Care Team Providers Name Role Phone Lillian Perez Primary Care Provider Reason for Visit Reason Comments Assessment Bleeding and needs to know w hat to do. Encounter Details Date Type Department Care Team Description [facility], Ass essment ([place] PRODUCT DIRECTOR and needs to know what [address] to do.) [place], [place] [phone] Allergies No Known [...] encounter Miscellaneous Notes Telephone Encounter - Mercy Dize RN - 03/01/2020 11:19 AM CDTPatient called [...] 03/16/2020 Routine Visit OB Satellites Tara Perez, PRODUCT DIRECTOR [address] [facility] [place] [place] [address] [phone] Health Maintenance Due Date Last Done Comments [...] T ype Group Dates MEDICAID MEDICAID PENDING 2020-[address] [address] documented as of this encounter
--- OUTSIDE RECORDS SUMMARY | 2020-05-01 11:18 | XMS REPORT | Summary of Care ---
:2000 Author Organization [facility] Address [address] [place] [address] Care Team Providers Name Role Phone Lillian Perez Primary Care Provider Reason for Visit Reason Comments New OB Visit Encounter Details Date Type Department Care Team Description 02/17/2020 Initial [facility] RMP- Tara Perez pervision of high risk in first trimester (Primary Dx); Visit CLARE Zapata Obesity affecting , antepartum; [address] Exposure to viral disease; Street [address] [place] [address] [phone] Allergies No Known Allergiesdocumented as of this [...] in this encounter Progress Notes Tara Perez, WAIST CUTTER - 02/17/2020 1:45 PM CDT Chief complaint: [...] file Gets together: Not on file Attends taoist service: Not on file Active member of [...] Social History Narrative Patient lives with fiance. Buddhism preference Anglican. Patient has 2 dogs and 1 kitten, aware of litter box precautions. Social History Substance and Sexual Activity Sexual Activity Not on file Genetic Screen Autism / Mental Retardation: No Hawk Disease: No Congenital Heart Defect: No Cystic Fibrosis: No Down Syndrome: No Familial Dysautonomia: No Hemophilia or other Blood Disorders: No [place] Chorea: No Maternal Metabolic Disorder--specify (eg. Type [...] - WORKUP, BLOOD BANK - RUBELLA SCREEN (MERYL) IGG - GALV ONLY - SYPHILIS IGG/IGM [...] Perez FNP [address] [place], [place] [address] [phone] Name Type Priority Associated Diagnoses Order S [...] T ype Group Dates MEDICAID MEDICAID PENDING 2020-[address] [place] [phone] documented as of this encounter
--- OUTSIDE RECORDS SUMMARY | 2020-05-01 11:19 | XMS REPORT | Summary of Care ---
:2000 Author Organization [facility] Address [address] [place] [address] Care Team Providers Name Role Phone Lillian Perez Primary Care Provider Encounter Details Date Type Department Care Team Description 03/20/2020 Orders Only [facility] Doctor Unassigned, No 301 [facility] [place] [address] [address] [place] [address] Allergies No Known Allergiesdocumented as of this encounter (statuses as of 03/20/2020) Medications No known medicationsdocumented as of this encounter (statuses as of 03/20/2020) Active Problems Problem Noted Date Spontaneous miscarriage 03/16/2020 Elevated BP without diagnosis of hypertension 03/03/20 20 Influenza vaccine refused 02/17/2020 documented as of this encounter (statuses as of 03/20/2020) Resolved Problems Problem Noted Date Resolved Date Threatened , antepartum 03/03/2020 03/16/20 20 Susceptible to varicella (non-immune), currently 03/16/2020 Overview: Address pp Supervision of high risk in first trimester 201903/16/2020 Obesity affecting , antepartum 02/17/2020 03/16/2020 documented as of this encounter (statuses as of 03/20/2020) Social History Tobacco Use Types Packs/Day Years Used Date Never Smoker Smokeless Tobacco: Never Used Alcohol Use Drinks/Week oz/Week Comments Not Currently Sex Assigned at Date Recorded Not on file COVID-19 Exposure Response Date Recorded In the last month, have you been in contact with No / Unsure 03/16/2020 12:51 PM CAREER CENTER DIRECTOR someone who was confirmed or suspected to have Coronavirus / COVID-19? documented as of this encounter Last Filed Vital Signs Not on filedocumented in this encounter Plan of Treatment Date Type Specialty Care Team Description 03/20/2021 Office Visit OB Satellites Tara Perez, STEAM POWERPLANT SUPERVISOR [address] [place], [place] [address] [phone] Health Maintenance Due Date Last Done Comments [...] Name Priority Date/Time Associated Diagnosis Comme nts EXTERNAL PROVIDER Routine 03/20/2020 12:01 AM CAREER CENTER DIRECTOR RECORDS documented in this encounter Results Not on filedocumented in this encounter Insurance Payer Benefit Plan / Subscriber ID Effective Dates Phone Addre ss Type Group [facility] MEDICAID OF [id number] 2020-[place] [phone] [place] [id number] [place] [address] documented as of this encounter
--- OUTSIDE RECORDS SUMMARY | 2020-05-01 11:19 | XMS REPORT | Summary of Care ---
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 documented as of this encounter (statuses as of 04/16/2020) Active Problems Problem Noted Date Spontaneous miscarriage 03/16/2020 Elevated BP without diagnosis of hypertension 03/03/20 20 Influenza vaccine refused 02/17/2020 documented as of this encounter (statuses as of 04/16/2020) Resolved Problems Problem Noted Date Resolved Date Threatened , antepartum 03/03/2020 03/16/20 20 Susceptible to varicella (non-immune), currently 03/16/2020 Overview: Address pp Supervision of high risk in first trimester 201903/16/2020 Obesity affecting , antepartum 02/17/2020 03/16/2020 documented as of this encounter (statuses as of 04/16/2020) Social History Tobacco Use Types Packs/Day Years Used Date Never Smoker Smokeless Tobacco: Never Used Alcohol Use Drinks/Week oz/Week Comments Not Currently Sex Assigned at Date Recorded Not on file COVID-19 Exposure Response Date Recorded In the last month, have you been in contact with No / Unsure 04/16/2020 4:51 PM COUTURE ALTERATIONS DRESSMAKER someone who was confirmed or suspected to have Coronavirus / COVID-19? documented as of this encounter Last Filed Vital Signs Vital Sign Reading Time Taken Comments Blood Pressure 138/81 04/16/2020 5:00 PM COUTURE ALTERATIONS DRESSMAKER Pulse 100 04/16/2020 5:00 PM COUTURE ALTERATIONS DRESSMAKER Temperature 37.2 C (98.9 F) 04/16/2020 5:00 PM COUTURE ALTERATIONS DRESSMAKER Respiratory Rate 18 04/16/2020 5:00 PM COUTURE ALTERATIONS DRESSMAKER Oxygen Saturation 100% 04/16/2020 5:00 PM COUTURE ALTERATIONS DRESSMAKER Inhaled Oxygen Concentration - - Weight 92.5 kg (204 lb) 04/16/2020 5:00 PM COUTURE ALTERATIONS DRESSMAKER Height - - Body Mass Index - - documented in this encounter Discharge Instructions InstructionsCarl Samayoa FNP - 04/16/2020 You were seen today for Chief Complaint Patient presents with Abscess Your ER diagnosis was ICD-10-CM ICD-9-CM 1. Cellulitis of right upper arm L03.113 682.3 NO LIFE-THREATENING FINDINGS ON TODAY'S EXAM. YOUR PRESCRIPTIONS : Medication List START taking these medications cephALEXin 500 mg capsule Commonly known as: KEFLEX Take 1 capsule by mouth 4 (four) times daily for 7 days. Where to Get Your Medications You can get these medications from any pharmacy Bring a paper prescription for each of these medications cephALEXin 500 mg capsule ER precautions and follow up : 1. Return to ER if your symptoms should worsen or fail to improve within 72 hours. 2. The care provided in the emergency room was for acute problems only. 3. You should follow up with your primary care provider within 72 hours. 4. Fill and take all your medications as prescribed. 5. Make sure you are staying adequately hydrated. Busque attencion immediatamente si usted tiene los sitomas sigue, vuelve peor o si hay sitomas nuevas o para cualquiera preoccupacion incluyendo dolor del pecho, falta aire, se siente debile, mas fievre, mas dolor, nausea, vomitando, sangrando que no es normal, confusion, baja or pierdas conciencia. FOLLOW-UP RECOMMENDATIONS: RECOMMEND FOLLOW-UP WITH A PRIMARY CARE PROVIDER OR SPECIALIST IN 2-5 DAYS, ESPECIALLY IF NO IMPROVEMENT IN SYMPTOMS. MAY FOLLOW-UP WITH A PROVIDER OF YOUR CHOICE, SUCH : 1. A PHYSICIAN OF YOUR CHOICE 2. [facility], . LOCATIONS IN [facility] 3. [facility], [address] [place] [address]; [phone] OR, IF YOU WISH TO FOLLOW-UP WITHIN THE [facility], MAY TRY THESE OPTIONS (CLINIC APPOINTMENTS AVAILABLE ON WKPW-BY-VOYY BASIS): 1. SCHEDULE AN APPOINTMENT ONLINE AT [facility] 2. OR CALL THE [facility] AT OR 3. OR CALL YOUR [facility] PHYSICIAN'S OFFICE DIRECTLY IF YOU ARE ALREADY AN ESTABLISHED [facility] PATIENT. AttachmentsThe following attachments cannot be sent through Care Everywhere.Skin Infection, Cellulitis (Frisian)documented in this encounter ED Notes Dylan Gilbert RN - 04/16/2020 4:59 PM CSTArrives to ED c/o abscess to the right upper arm x 5 days, + COVID test was tested . No symptoms. URE ALTERATIONS DRESSMAKER documented in this encounter Miscellaneous Notes ED Nurse Note - April Glover RN - 04/16/2020 6:10 PM CSTPt discharged with diagnosis of cellulitis to right upper arm. Printed and verbal instructions reviewed with and given to patient. Prescriptions given x1. Pt verbalized understanding of teaching, medications, and recommended follow-up. Denies questions or concerns at this time. Pt ambulatory at discharge appears in no apparent distress. No ataxia noted. URE ALTERATIONS DRESSMAKER documented in this encounter Plan of Treatment Date Type Specialty Care Team Description 03/20/2021 Office Visit OB Satellites Tara Perez, OFFSHORE WIND OPERATIONS MANAGER [address] [place], [place] [address] [phone] Health Maintenance Due Date Last Done Comments [...] Diagnosis Comme nts NOTICE OF PRIVACY Routine 04/16/2020 4:52 PM COUTURE ALTERATIONS DRESSMAKER PRACTICES CONSENT/REFUSAL FOR Routine 04/16/2020 4:52 PM COUTURE ALTERATIONS DRESSMAKER DIAGNOSIS AND TREATMENT documented in this encounter Results Not on filedocumented in this encounter Visit Diagnoses Diagnosis Cellulitis of right upper arm - Primary Cellulitis and abscess of upper arm and forearm documented in this encounter Insurance Payer Benefit Plan / Subscriber ID Effective Dates Phone Addre ss Type Group [facility] MEDICAID OF [id number] 2020-[facility] [phone] Medicaid [place] t [id number] [place] [address] [id number] 1 documented as of this encounter
--- OUTSIDE RECORDS SUMMARY | 2020-05-01 11:19 | XMS REPORT | Summary of Care ---
:2000 Author Organization [facility] Address [address] [place] [address] Care Team Providers Name Role Phone Lillian Perez Primary Care Provider Reason for Visit Reason Comments Care Encounter Details Date Type Department Care Team Description 03/16/2020 Routine [facility]- Tara Perez ontaneous Visit CLARE Zapata miscarriage (Primary [address]x) [place] [address] [phone] Allergies No Known Allergiesdocumented as of this encounter (statuses as of 03/16/2020) Medications No known medicationsdocumented as of this encounter (statuses as of 03/16/2020) Active Problems Problem Noted Date Spontaneous miscarriage 03/16/2020 Elevated BP without diagnosis of hypertension 03/03/20 20 Influenza vaccine refused 02/17/2020 documented as of this encounter (statuses as of 03/16/2020) Resolved Problems Problem Noted Date Resolved Date Threatened , antepartum 03/03/2020 03/16/20 20 Susceptible to varicella (non-immune), currently 03/16/2020 Overview: Address pp Supervision of high risk in first trimester 201903/16/2020 Obesity affecting , antepartum 02/17/2020 03/16/2020 documented as of this encounter (statuses as of 03/16/2020) Social History Tobacco Use Types Packs/Day Years Used Date Never Smoker Smokeless Tobacco: Never Used Alcohol Use Drinks/Week oz/Week Comments Not Currently Sex Assigned at Date Recorded Not on file COVID-19 Exposure Response Date Recorded In the last month, have you been in contact with No / Unsure 03/16/2020 12:51 PM 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 documented as of this encounter Last Filed Vital Signs Vital Sign Reading Time Taken Comments Blood Pressure 134/81 03/16/2020 12:52 PM CITRUS FRUIT COLORER Pulse 93 03/16/2020 12:52 PM CITRUS FRUIT COLORER Temperature 36.9 C (98.4 F) 03/16/2020 12:52 PM CITRUS FRUIT COLORER Respiratory Rate 16 03/16/2020 12:52 PM CITRUS FRUIT COLORER Oxygen Saturation - - Inhaled Oxygen Concentration - - Weight 90.4 kg (199 lb 6 oz) 03/16/2020 12:52 PM CITRUS FRUIT COLORER Height 170.2 cm (5' 7") 03/16/2020 12:52 PM CITRUS FRUIT COLORER Body Mass Index 31.23 03/16/2020 12:52 PM CITRUS FRUIT COLORER documented in this encounter Progress Notes Tara Perez, SENIOR DEVOPS ENGINEER - 03/16/2020 1:00 PM CST Chief complaint: Chief Complaint Patient presents with Care HPI Virginia Greer is a 20 year old here for f/u after miscarriage. Pt reports Vaginal bleeding has stopped. UPT today negative. Pt plans to use condoms for contraception and declines other forms of contraception today. Histories OB History Para Term AB Living 1 1 SAB TAB Ectopic Multiple Live Births 1 # Outcome Date GA Lbr Lul/2nd Weight Sex Delivery Anes PTL Lv 1 SAB No past medical history on file. Family [...] file Gets together: Not on file Attends yazidi service: Not on file Active member of [...] Social History Narrative Patient lives with fiance. Restorationism preference Sikhism. Patient has 2 dogs and 1 kitten, aware of litter box precautions. Social History Substance and Sexual Activity Sexual Activity Not on file Labs Results for VIRGINIA GREER ( ) as of 03/16/2020 13:31 Ref. Range 03/03/2020 08:25 03/06/2020 08:34 BETA HCG Latest Ref Range: Non- female and male patients: <5 mIU/mL 476.17 130.77 Radiology No new radiology. Allergies Virginia has No Known Allergies. Medications [...] dizziness, light-headedness and headaches. Psychiatric/Behavioral: Negative. BP 134/81 (BP Location: Right arm, Patient Position: Sitting, BP CUFF SIZE: Adult Medium) | Pulse 93 | Temp 36.9 C (98.4 F) (Other (comment)) | Resp 16 | Ht 5' 7" (1.702 m) | Wt 199 lb 6 oz (90.4 kg) | LMP 12/27/2019 (Approximate) | Unknown | BMI 31.23 kg/m Pregravid BMI: 27.40 Physical Exam Vitals reviewed. Constitutional: She is oriented to person, place, and time. She appears well- developed and well-nourished. Her body habitus is normal. Pulmonary/Chest: Normal inspiratory effort. Neuro/Psychiatric: She has a normal mood and affect. She is oriented to person, place, and time. Assessment/Plan 1. Spontaneous miscarriage Discussed spontaneous miscarriage, no further follow up needed UPT negative Patient declines contraception, plans to use condoms - POCT URINALYSIS W SPECIFIC GRAVITY - POCT TEST Return to clinic in 52 weeks. Discussed treatment options. Reviewed patient instructions and provided printed copy. This visit did not involve counseling and coordination that comprised more than 50% of the visit time. US FRUIT COLORER documented in this encounter Plan of Treatment Date Type Specialty Care Team Description 03/20/2021 Office Visit OB Satellites Tara Perez FNP [address] [place], [place] [address] [phone] Health Maintenance Due Date Last Done Comments [...] on patient's age to complete this to [facility] PNEUMOCOCCAL 0-64 YEARS Aged Out No longe r eligible based COMBINED SERIES on patient's age to complete this to [facility] WELL CARE VISIT: 12-21 YEARS Discontinued (yearly) documented as of this encounter Procedures Procedure Name Priority Date/Time Associated Diagnosis Comme nts POCT URINALYSIS Routine 03/16/2020 12:52 Spontaneous Results for this PM CITRUS FRUIT COLORER miscarriage procedure are i n the results section. POCT TEST Routine 03/16/2020 Spontaneous Results for this miscarriage procedure are i n the results section. documented in this encounter Results POCT URINALYSIS W SPECIFIC GRAVITY (03/16/2020 12:52 PM CITRUS FRUIT COLORER) Pathologist Sig nature POCT U SP GRAV . 1.005 - 1.025 mg/dl POCT PH U . 5 - 8 mg/dl POCT U LEUK EST . Negative - Negative POCT U NIT . Negative - Negative POCT U PROT trace Negative - Negative POCT U GLU neg Negative - Negative POCT U KETONE . Negative - Negative POCT U UROBILI . 0.2 - 1 mg/dl POCT U BILI . Negative - Negative POCT U BLD . Negative - Negative POCT U COLOR POCT U APPEAR Specimen Urine - URINE, CLEAN CATCH POCT TEST (03/16/2020) Pathologist Sig nature POCT PREG Negative On board controls acceptable Yes with C Line POCT PREG LOT # POCT PREG TEST DATE Specimen Urine - URINE, CLEAN CATCH documented in this encounter Visit Diagnoses Diagnosis Spontaneous miscarriage - Primary Unspecified spontaneous without mention of complication documented in this encounter Insurance Payer Benefit Plan / Subscriber ID Effective Dates Phone Addre ss Type Group [facility] MEDICAID OF [id number] 2020-[place] [phone] [address] [facility] Medicaid [place] t [id number] [place] [address] [facility] . [id number] [place], [place] [address] documented as of this encounter
--- NOTE | 2020-05-01 11:47 | ER ---
Nurse's Notes [facility] Name: Virginia Greer Age: 20 yrs Sex: Female : 2000 Arrival Date: 05/01/2020 Time: 10:47 Bed 29 Private MD: Diagnosis: Acute upper respiratory infection, unspecified Presentation: 05/01 10:56 Chief complaint: Patient states: My roommate came here and had the flu but negative for ca1 Covid. I started having flu symptoms yesterday. Reports cough, congestion, headache and dizziness. Denies fever. Coronavirus screen: Client denies travel out of the [place] in the last 14 days. congestion, cough unrelated to allergies, headache, Client presents with at least one sign or symptom that may indicate coronavirus-19. Standard/surgical mask placed on the client. Provider contacted for isolation considerations. Ebola Screen: Patient negative for fever greater than or equal to 101.5 degrees Fahrenheit, and additional compatible Ebola Virus Disease symptoms Patient denies exposure to infectious person. Patient denies travel to an Ebola-affected area in the 21 days before illness onset. No symptoms or risks identified at this time. Initial Sepsis Screen: Does the patient meet any 2 criteria? No. Patient's initial sepsis screen is negative. Does the patient have a suspected source of infection? No. Patient's initial sepsis screen is negative. Risk Assessment: Do you want to hurt yourself or someone else? Patient reports no desire to harm self or others. Onset of symptoms was April 30, 2020. 10:56 Method Of Arrival: Ambulatory ca1 10:56 Acuity: BREANN 4 ca1 Triage Assessment: 10:58 General: Appears in no apparent distress. comfortable, Behavior is calm, cooperative, ca1 appropriate for age. Pain: Denies pain. 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 - Social history:: Smoking status: Patient denies any tobacco usage or history of. Screenin:02 Abuse screen: Denies threats or abuse. Denies injuries from another. Nutritional iw screening: No deficits noted. Tuberculosis screening: No symptoms or risk factors identified. Fall Risk None identified. Assessment: 12:02 General: Appears in no apparent distress. Behavior is calm, cooperative. Pain: iw Complains of pain in head. Neuro: Level of Consciousness is awake, alert, obeys commands, Oriented to person, place, time, situation. Cardiovascular: Patient's skin is warm and dry. Respiratory: Respiratory effort is even, unlabored, Respiratory pattern is regular, symmetrical. Derm: Skin is intact, is healthy with good turgor. Musculoskeletal: Range of motion: intact in all extremities. Vital Signs: 10:56 BP 125 / 76; Pulse 90; Resp 16 S; Temp 98.2(TE); Pulse Ox 99% on R/A; Weight 86.18 kg ca1 (R); Height 5 ft. 7 in. (170.18 cm) (R); Pain 0/10; 10:56 Body Mass Index 29.76 (86.18 kg, 170.18 cm) ca1 ED Course: 10:47 Patient arrived in ED. ag5 10:58 Triage completed. ca1 10:58 Arm band placed on right wrist. ca1 11:09 Flu Sent. ca1 11:13 Obi Wheeler PA is PHCP. jr8 11:13 Sherif Camarena MD is Attending Physician. jr8 11:29 Catarina Perez, RN is Primary Nurse. iw 12:00 No provider procedures requiring assistance completed. Patient did not have IV access iw during this emergency room visit. 12:02 Patient has correct armband on for positive identification. iw Administered Medications: No medications were administered Outcome: 11:46 Discharge ordered by . jrJoni 12:02 Discharged to home ambulatory. iw 12:02 Condition: good 12:02 Discharge instructions given to patient, Instructed on discharge instructions, follow up and referral plans. Demonstrated understanding of instructions, follow-up care. 12:03 Patient left the ED. iw Signatures: Catarina Perez RN RN iw Obi Wheeler PA PA jr8 Francesca Díaz RN RN ca1 Reyna Ramos ag5
--- NOTE | 2020-05-01 11:47 | EDPHYS ---
Physician Documentation [facility] Name: Virginia Greer Age: 20 yrs Sex: Female : 2000 Arrival Date: 05/01/2020 Time: 10:47 Bed 29 Private MD: ED Physician Sherif Camarena HPI: 05/01 11:43 This 20 yrs old Female presents to ER via Ambulatory with complaints of Flu jr8 Symptoms. 11:43 Onset: The symptoms/episode began/occurred acutely, today. Associated signs and jr8 symptoms: Pertinent positives: congestion, headache. Modifying factors: The patient symptoms are alleviated by nothing, the patient symptoms are aggravated by nothing. The patient has not experienced similar symptoms in the past. The patient has not recently seen a physician. Stated that she was tested on for COVID 19. Was negative. Now with above symptoms . 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 - Social history:: Smoking status: Patient denies any tobacco usage or history of. ROS: 11:43 Eyes: Negative for injury, pain, redness, and discharge, Neck: Negative for injury, jr8 pain, and swelling, Cardiovascular: Negative for chest pain, palpitations, and edema, Respiratory: Negative for shortness of breath, cough, wheezing, and pleuritic chest pain, Abdomen/GI: Negative for abdominal pain, nausea, vomiting, diarrhea, and constipation, Back: Negative for injury and pain, MS/Extremity: Negative for injury and deformity, Skin: Negative for injury, rash, and discoloration. 11:43 ENT: Positive for sinus congestion. 11:43 Neuro: Positive for headache. Exam: 11:43 Eyes: Pupils equal round and reactive to light, extra-ocular motions intact. Lids and jr8 lashes normal. Conjunctiva and sclera are non-icteric and not injected. Cornea within normal limits. Periorbital areas with no swelling, redness, or edema. ENT: Nares patent. No nasal discharge, no septal abnormalities noted. Tympanic membranes are normal and external auditory canals are clear. Oropharynx with no redness, swelling, or masses, exudates, or evidence of obstruction, uvula midline. Mucous membranes moist. Neck: Trachea midline, no thyromegaly or masses palpated, and no cervical lymphadenopathy. Supple, full range of motion without nuchal rigidity, or vertebral point tenderness. No Meningismus. Cardiovascular: Regular rate and rhythm with a normal S1 and S2. No gallops, murmurs, or rubs. Normal PMI, no JVD. No pulse deficits. Respiratory: Lungs have equal breath sounds bilaterally, clear to auscultation and percussion. No rales, rhonchi or wheezes noted. No increased work of breathing, no retractions or nasal flaring. Abdomen/GI: Soft, non-tender, with normal bowel sounds. No distension or tympany. No guarding or rebound. No evidence of tenderness throughout. Back: No spinal tenderness. No costovertebral tenderness. Full range of motion. Skin: Warm, dry with normal turgor. Normal color with no rashes, no lesions, and no evidence of cellulitis. MS/ Extremity: Pulses equal, no cyanosis. Neurovascular intact. Full, normal range of motion. Neuro: Awake and alert, GCS 15, oriented to person, place, time, and situation. Cranial nerves II-XII grossly intact. Motor strength 5/5 in all extremities. Sensory grossly intact. Cerebellar exam normal. Normal gait. Vital Signs: 10:56 BP 125 / 76; Pulse 90; Resp 16 S; Temp 98.2(TE); Pulse Ox 99% on R/A; Weight 86.18 kg ca1 (R); Height 5 ft. 7 in. (170.18 cm) (R); Pain 0/10; 10:56 Body Mass Index 29.76 (86.18 kg, 170.18 cm) ca1 MDM: 11:39 Patient medically screened. jr8 11:43 Data reviewed: vital signs, nurses notes, lab test result(s), Flu: negative and as a jr8 result, I will discharge patient. Data interpreted: Pulse oximetry: on room air is 99 %. Interpretation: normal. Counseling: I had a detailed discussion with the patient and/or guardian regarding: the historical points, exam findings, and any diagnostic results supporting the discharge/admit diagnosis, lab results, the need for outpatient follow up, a family practitioner, to return to the emergency department if symptoms worsen or persist or if there are any questions or concerns that arise at home. ED course: Recommended f/u with PCP. Treat symptomatically with OTC medications. If more symptoms were to evolve or she get worse. Then to get retested for COVID . 05/01 11:00 Order name: Flu ca1 05/01 11:01 Order name: Influenza Screen (A ; Complete Time: 11:39 EDMS Administered Medications: No medications were administered Disposition: 14:43 Co-signature as Attending Physician, Sherif Camarena MD. rn Disposition: 05/01/20 11:46 Discharged to Home. Impression: Acute upper respiratory infection, unspecified. - Condition is Stable. - Discharge Instructions: Upper Respiratory Infection, Adult, COVID-19. - Work release form, Medication Reconciliation Form, Thank You Letter, Antibiotic Education, Prescription Opioid Use form. - Follow up: Private Physician; When: 5 - 6 days; Reason: Recheck today's complaints, Continuance of care, Re-evaluation by your physician. - Problem is new. - Symptoms have improved. Signatures: Dispatcher [employer] EDMS Catarina Perez RN RN Sherif Galarza MD MD rn Roszak, Josh, PA PA jr8 Francesca Díaz RN RN ca1 Corrections: (The following items were deleted from the chart) 12:03 11:46 05/01/2020 11:46 Discharged to Home. Impression: Acute upper respiratory iw infection, unspecified. Condition is Stable. Forms are Medication Reconciliation Form, Thank You Letter, Antibiotic Education, Prescription Opioid Use. Follow up: Private Physician; When: 5 - 6 days; Reason: Recheck today's complaints, Continuance of care, Re-evaluation by your physician. Problem is new. Symptoms have improved. jr8
[2020-05-02 20:54] VITALS: BP 125/76; TEMP 98.2; O2SAT 99
== END 2020-05-01 12:03 | disposition home or self-care (01) ==
LOC: ER 10:45
DX: J06.9 Acute upper respiratory infection, unspecified (principal)
CPT/HCPCS: 87804; 99283